=== PATIENT | female | born 1975 | race American Indian/Alaskan Native ===

== ENCOUNTER 2016-07-05 08:22 | Outpatient (CLI) | payer BC ==
--- NOTE | 2016-07-05 15:53 | Mammography Report ---
BILATERAL DIGITAL SCREENING MAMMOGRAM with CAD: 07/05/16 08:22:00 CLINICAL: Routine screening. COMPARISON:07/01/14 FINDINGS: The breasts are heterogeneously dense, which may obscure small masses. A left outer asymmetry in the CC view requires additional imaging.No architectural distortion or suspicious calcifications.The right breast is negative. IMPRESSION: Left asymmetry requiring further workup. BI-RADS CATEGORY: 0 -- Additional Imaging Evaluation Required RECOMMENDATION: Recall for left CC spot compression view and a left breast ultrasound if needed. ACR BI-RADS MAMMOGRAPHIC CODES: 0 = Needs additional imaging evaluation; 1 = Negative; 2 = Benign; 3 = Probably benign; 4 = Suspicious; 5 = Malignant; 6 = Known biopsy-proven malignancy COMMENT: 1. Dense breast tissue, i.e., adenosis, fibrocystic changes, etc., may obscure an underlying neoplasm. 2. Approximately 10% of cancers are not detected with mammography. 3. A negative mammography report should not delay biopsy if a clinically suspicious mass is present. COMMENT: Patient follow-up letters are generated via our [employer] application.
== END 2016-07-05 08:23 | disposition home or self-care (01) ==
LOC: SPVWC 08:22
PROVIDERS: ATTEND Obstetrics & Gynecology
DX: Z12.31 Encounter for screening mammogram for malignant neoplasm of breast (principal)
CPT/HCPCS: 77067; G0202

== ENCOUNTER 2016-07-20 08:16 | Outpatient (CLI) | payer BC ==
--- NOTE | 2016-07-20 09:51 | Mammography Report ---
LEFT DIGITAL DIAGNOSTIC MAMMOGRAM and LEFT BREAST ULTRASOUND: 07/20/16 08:16:00 CLINICAL: Recall to evaluate an asymmetry. COMPARISON:07/05/16 screening FINDINGS: ML and CC views without and with spot compression were performed. An asymmetry persists far posterior in the outer breast on the repeat CC view but shows effacement with spot compression. The lateral view is negative. Ultrasound of the outer left breast was performed. A subareolar cyst at 3 o'clock measures 6 x 4 x 4 mm. No other cysts and no mass or shadowing. IMPRESSION: Left benign asymmetry and a benign subareolar cyst. BI-RADS CATEGORY: 2 - - Benign RECOMMENDATION: Routine mammographic screening in one year. ACR BI-RADS MAMMOGRAPHIC CODES: 0 = Needs additional imaging evaluation; 1 = Negative; 2 = Benign; 3 = Probably benign; 4 = Suspicious; 5 = Malignant; 6 = Known biopsy-proven malignancy COMMENT: 1. Dense breast tissue, i.e., adenosis, fibrocystic changes, etc., may obscure an underlying neoplasm. 2. Approximately 10% of cancers are not detected with mammography. 3. A negative mammography report should not delay biopsy if a clinically suspicious mass is present. COMMENT: Patient follow-up letters are generated via our [employer] application.
== END 2016-07-20 08:17 | disposition home or self-care (01) ==
LOC: SPVWC 08:16
PROVIDERS: ATTEND Nurse Practitioner
DX: N60.02 Solitary cyst of left breast (principal)
CPT/HCPCS: 76642; G0206

== ENCOUNTER 2017-06-09 10:10 | Outpatient (CLI) | payer BC ==
--- NOTE | 2017-06-09 13:41 | XRay Report ---
XRAY LUMBAR SPINE THREE VIEWS: 06/09/17 10:10:00 CLINICAL: Chronic back pain. FINDINGS: Normal vertebral body height, alignment and disk spaces. Small anterior osteophytes at L3-4 and L4-5. The pedicles are intact. No fracture. Normal soft tissues. IMPRESSION: Minimal degenerative change.
== END 2017-06-09 10:11 | disposition home or self-care (01) ==
LOC: SPVIMAG 10:10
PROVIDERS: ATTEND Internal Medicine
DX: M47.896 Other spondylosis, lumbar region (principal); M25.78 Osteophyte, vertebrae
CPT/HCPCS: 72100

== ENCOUNTER 2018-07-20 12:50 | Outpatient (CLI) | payer BC ==
--- NOTE | 2018-07-20 13:53 | Mammography Report ---
Bilateral mammogram: Compared to 06/18/14. CAD study utilized. Findings: Predominance of adipose tissue bilaterally. Benign density left breast. New focal asymmetry measuring 5 mm in diameter inner posterior right breast. No microcalcification. Benign axillary nodes. Impression: New focal asymmetry right breast. Recommend spot compression and sonographic examination. BI-RADS CATEGORY: 0 = Needs additional imaging evaluation ACR BI-RADS MAMMOGRAPHIC CODES: 0 = Needs additional imaging evaluation; 1 = Negative; 2 = Benign; 3 = Probably benign; 4 = Suspicious; 5 = Malignant; 6 = Known biopsy-proven malignancy COMMENT: 1. Dense breast tissue, i.e., adenosis, fibrocystic changes, etc., may obscure an underlying neoplasm. 2. Approximately 10% of cancers are not detected with mammography. 3. A negative mammography report should not delay biopsy if a clinically suspicious mass is present. COMMENT: [facility].
== END 2018-07-20 12:51 | disposition home or self-care (01) ==
LOC: SPVWC 12:50
PROVIDERS: ATTEND Obstetrics & Gynecology
DX: Z12.31 Encounter for screening mammogram for malignant neoplasm of breast (principal)
CPT/HCPCS: 77067

== ENCOUNTER 2019-01-08 08:37 | Outpatient (CLI) | payer BC ==
--- NOTE | 2019-01-09 14:27 | Mammography Report ---
DIGITAL DIAGNOSTIC MAMMOGRAM WITH CAD, -- 01/08/2019 INDICATION: Focal asymmetry right breast on prior screening mammogram TECHNIQUE: Digital right mammographic imaging was performed. Spot compression views were obtained. This examination was interpreted with the benefit of Computer-aided Detection analysis. COMPARISON: Screening mammography 07/20/2018 and 07/05/2016 FINDINGS: Breast Density: There are scattered areas of fibroglandular density. There is no evidence of dominant mass, suspicious calcifications or architectural distortion in the r ight breast. Density in question resolves with spot compression view. IMPRESSION: Resolution of prior density of concern BI-RADS Category 1: Negative. Recommend routine screening mammography in one year. A "normal" or negative report should not discourage follow up or biopsy of a clinically significant f inding. A written summary of these findings will be mailed to the patient. The patient will be entered into a mammography reporting system which will generate a reminder letter for the patient's next appointmen t at the appropriate interval. According to the [employer], yearly mammograms are recommended starting at age 40 and continuing as long as a woman is in good health. Breast MRI is recommended for women with an karen roximately 20-25% or greater lifetime risk of breast cancer, including women with a strong family his tory of breast or ovarian cancer and women who have been treated for Hodgkin's disease. Signer Name: Keon Lord MD Signed: 01/08/2019 9:36 AM Workstation Name: [id number]
== END 2019-01-08 08:38 | disposition home or self-care (01) ==
LOC: SPVWC 08:37
PROVIDERS: ATTEND Internal Medicine
DX: R92.8 Other abnormal and inconclusive findings on diagnostic imaging of breast (principal)

== ENCOUNTER 2020-08-04 10:19 | Outpatient (CLI) | payer BC ==
--- NOTE | 2020-08-04 16:26 | Mammography Report ---
DIGITAL SCREENING MAMMOGRAM WITH CAD, 08/04/2020 CLINICAL INFORMATION / INDICATION: Routine screening mammography. SCREENING MAMMO TECHNIQUE: Digital bilateral 2D mammography was obtained in the craniocaudal and mediolateral obliqu e projections. This examination was interpreted with the benefit of Computer-Aided Detection analysis . COMPARISON: Prior mammogram 07/20/2018 and 07/05/2016 FINDINGS: Breast Density: There are scattered areas of fibroglandular density. No dominant mass, suspicious calcifications, or architectural distortion in either breast. There has been no significant change compared with the prior examination. IMPRESSION: No mammographic evidence of malignancy. Follow up recommendation: Routine yearly BI-RADS Category 1: Negative. A "normal" or negative report should not discourage follow up or biopsy of a clinically significant f inding. A written summary of these findings will be mailed to the patient. The patient will be entered into a mammography reporting system which will generate a reminder letter for the patient's next appointmen t at the appropriate interval. The [employer] recommends yearly mammograms starting at age 40 and continuing as l shelly as a woman is in good health. Breast MRI is recommended for women with an approximate 20-25% or greater lifetime risk of breast cancer, including women with a strong family history of breast or ova james cancer or who have been treated for Hodgkin's disease. Signer Name: Kalee Kumar MD Signed: 08/04/2020 4:21 PM Workstation Name: [email or web address]
== END 2020-08-04 10:20 | disposition home or self-care (01) ==
LOC: SPVWC 10:19
PROVIDERS: ATTEND Obstetrics & Gynecology
DX: Z12.31 Encounter for screening mammogram for malignant neoplasm of breast (principal)
CPT/HCPCS: 77067

== ENCOUNTER 2021-12-14 10:39 | Outpatient (CLI) | payer BC ==
--- NOTE | 2021-12-15 18:35 | Mammography Report ---
DIGITAL SCREENING MAMMOGRAM WITH CAD, 12/14/2021 CLINICAL INFORMATION / INDICATION: Routine screening mammography. TECHNIQUE: Digital bilateral 2D mammography was obtained in the craniocaudal and mediolateral obliqu e projections. This examination was interpreted with the benefit of Computer-Aided Detection analysis . COMPARISON: 08/04/2020, 07/20/2016 FINDINGS: Breast Density: There are scattered areas of fibroglandular density. No dominant mass, suspicious calcifications, or architectural distortion in either breast. No interval change. IMPRESSION: No mammographic evidence of malignancy. Follow up recommendation: Routine yearly screening mammogram. BI-RADS Category 1: NEGATIVE A "normal" or negative report should not discourage follow up or biopsy of a clinically significant f inding. A written summary of these findings will be mailed to the patient. The patient will be entered into a mammography reporting system which will generate a reminder letter for the patient's next appointmen t at the appropriate interval. The [employer] recommends yearly mammograms starting at age 40 and continuing as l shelly as a woman is in good health. Breast MRI is recommended for women with an approximate 20-25% or greater lifetime risk of breast cancer, including women with a strong family history of breast or ova james cancer or who have been treated for Hodgkin's disease. Signer Name: Africa Arango MD Signed: 12/15/2021 6:30 PM Workstation Name: [email or web address]
== END 2021-12-14 10:40 | disposition home or self-care (01) ==
LOC: SPVWC 10:39
PROVIDERS: ATTEND Obstetrics & Gynecology
DX: Z12.31 Encounter for screening mammogram for malignant neoplasm of breast (principal)
CPT/HCPCS: 77067